=== PATIENT | female | born 1950 | race Caucasian/White ===

== ENCOUNTER → 2016-10-05 | Outpatient (CLI) | payer OTHER ==
[~2016-10-05] MED LIST: ASPIR 8181 MG PO; AYR50 ML; CALCIUM600 MG PO; CENTRUM COMPLE1 EACH PO; CHERRY JUICE PO; ERYTHROMYCIN OP1 GM OP; GLUCOSAMINE1000 MG PO; LISINOPRIL5 MG PO; MECLIZINE HCL12.5 MG PO; NEOSPORIN ANT14.2 GM TOP; NORCO 5-325 TA1 EACH PO; TYLENOL 500 MG500 MG PO; VIT D PO; VIT E PO; [UNRECOGNIZED DRUG - OTHER] OP
== END ==
LOC: MAMO 10:20
DX: N63 Unspecified lump in breast (principal)
CPT/HCPCS: 76641-LT; 76641-RT; G0204

== ENCOUNTER → 2016-11-17 | Outpatient (CLI) | payer OTHER ==
[2016-11-17 11:22] LABS: HEMOGLOBIN 12.2 gm/dl (12.3-15.3); RED BLOOD COUNT 4.21 M/UL (4.00-5.10); WHITE BLOOD COUNT 6.8 K/UL (4.5-11.0)
== END ==
LOC: OPSV2 10:00
PROVIDERS: Obstetrics & Gynecology
DX: Z01.812 Encounter for preprocedural laboratory examination (principal); Z01.818 Encounter for other preprocedural examination; N84.0 Polyp of corpus uteri; Z91.041 Radiographic dye allergy status; Z88.8 Allergy status to other drugs, medicaments and biological substances; Z91.018 Allergy to other foods
CPT/HCPCS: 36415; 71020; 81001; 85025

== ENCOUNTER → 2016-11-25 | Day surgery (SDC) | payer OTHER ==
[~2016-11-25] VITALS: Ht 167.6 cm; Wt 114.8 kg
== END | disposition home or self-care (01) ==
LOC: OR 06:20
PROVIDERS: Obstetrics & Gynecology
PROC: 0UDB8ZZ Extraction of Endometrium, Via Natural or Artificial Opening Endoscopic (ICD-10-PCS; principal; 2016-11-25 08:00)
DX: N84.0 Polyp of corpus uteri (principal); M19.90 Unspecified osteoarthritis, unspecified site; I10 Essential (primary) hypertension; M85.80 Other specified disorders of bone density and structure, unspecified site; M81.0 Age-related osteoporosis without current pathological fracture; Z88.8 Allergy status to other drugs, medicaments and biological substances; Z91.040 Latex allergy status; Z88.1 Allergy status to other antibiotic agents; Z79.82 Long term (current) use of aspirin; Z79.899 Other long term (current) drug therapy; Z90.49 Acquired absence of other specified parts of digestive tract; Z87.19 Personal history of other diseases of the digestive system
CPT/HCPCS: J1885; J2250; J2405; J2795; J7120

== ENCOUNTER → 2020-10-10 | Outpatient (CLI) | payer OTHER | LOC: MAMO 08-29 08:00 | DX: Z12.31 Encounter for screening mammogram for malignant neoplasm of breast (principal); Z80.3 Family history of malignant neoplasm of breast | CPT/HCPCS: 77063; 77067 ==

== ENCOUNTER → 2021-01-01 | Outpatient (CLI) | payer OTHER | LOC: KOH-I 14:40 | DX: M25.562 Pain in left knee (principal) | CPT/HCPCS: 73564 ==

== ENCOUNTER 2021-10-22 11:41 | Emergency (ER) | payer OTHER ==
[~2021-10-22 11:41] MED LIST changes: -AMOX TR-K CLV1 EAC4 PO
[2021-10-22] MEDS ORDERED: AMOX TR-K CLV1 EAC4 PO (15:32)
== END 2021-10-22 16:38 | disposition home or self-care (01) ==
LOC: ER1 11:41
DX: S02.2XXA Fracture of nasal bones, initial encounter for closed fracture (principal); I10 Essential (primary) hypertension; W01.10XA Fall on same level from slipping, tripping and stumbling with subsequent striking against unspecified object, initial encounter
CPT/HCPCS: 70450; 70486; 72125; 73562; 90471; 90714; 90715; 99284

== ENCOUNTER → 2021-10-22 | Outpatient (CLI) | payer OTHER ==
[~2021-10-22] MED LIST changes: +AMOX TR-K CLV1 EAC4 PO
== END ==
LOC: MAMO 10:30
DX: Z12.31 Encounter for screening mammogram for malignant neoplasm of breast (principal)
CPT/HCPCS: 77063; 77067

== ENCOUNTER → 2022-03-16 | Outpatient (CLI) | payer OTHER ==
[~2022-03-16] MED LIST changes: +AMOX TR-K CLV1 EAC4 PO
== END ==
LOC: KOH-I 14:49
DX: I73.89 Other specified peripheral vascular diseases (principal); I70.8 Atherosclerosis of other arteries
CPT/HCPCS: 93925